=== PATIENT | male | born 1945 | race Caucasian/White ===

== ENCOUNTER → 2018-09-20 | Outpatient (CLI) | payer MEDICARE ==
[~2018-09-20] MED LIST: ADULT LOW DOSE81 MG PO; COUMADIN 2.5MG2.5 M1 PO; COUMADIN 3 MG TA3 MG PO; FISH OIL 1,0001 EAC5 PO; LORTAB 7.5/5001 TA1 PO; PERCOCET 5-3251 EACH; PERCOCET 5-3251 EACH PO; PHISOHEX148 ML; SERTRALINE HCL100 MG PO; ZOCOR 20 MG TAB20 M1 PO
--- NOTE | 2018-09-20 14:56 | 2DMMODE ---
[facility] [email or web address] [place] [address] 2 D/M-MODE ECHOCARDIOGRAM Name: MOSES MAIER Room #: REG CL [facility]#: [id number] ������������� Admission: 09/20/18 ������������� Attend Phys: Gautam Burns MD Discharge: ��� ������������� ��� Date of : 47 Date of Service: 09/20/18 1456 �� Report #: [id number] �������� ��������������������������������������������[id number] THIS REPORT FOR: //name// APPROVED REPORT Study performed: 09/20/2018 14:13:54 EXAM: Comprehensive 2D, Doppler, and color-flow Echocardiogram Patient Location: Out-Patient Status: routine BSA: 2.30 HR: 51 bpm BP: 138/76 mmHg Rhythm: NSR Other Information Study Quality: Adequate Indications Cardiomyopathy. AVR. 2D Dimensions RVDd: 40.77 mm IVSd: 10.33 (7-11mm) LVDd: 55.84 mm PWd: 9.30 (7-11mm) Ascending Ao: 38.91 (22-36mm) LVDs: 33.78 (25-40mm) Aortic Root: 37.25 mm Volumes Left Atrial Volume (Systole) Single Plane 4CH: 60.70 mL Single Plane 2CH: 54.26 mL LA ESV Index: 26.00 mL/m2 Aortic Valve AoV Peak Xavier.: 2.70 m/s AO Peak Gr.: 29.27 mmHg LVOT Max P.54 mmHg AO Mean Gr.: 15.19 mmHg AO V2 Mean: 1.84 m/s LVOT Max V: 1.07 m/s AO V2 VTI: 62.04 cm Mitral Valve E/A Ratio: 0.9 MV Decel. Time: 259.82 ms [facility] [address] [place] [address] 2 D/M-MODE ECHOCARDIOGRAM Name: MOSES MAIER Room #: REG CL [facility]#: [id number] ������������� Admission: 09/20/18 ������������� Attend Phys: Gautam Burns MD Discharge: ��� ������������� ��� Date of : 47 Date of Service: 09/20/18 1456 �� Report #: [id number] �������� ��������������������������������������������[id number] MV E Max Xavier.: 0.66 m/s MV A Xavier.: 0.74 m/s MV PHT: 75.35 ms IVRT: 92.27 ms Pulmonary Valve PV Peak Xavier.: 1.28 m/s PV Peak Gr.: 6.59 mmHg Pulmonary Vein P Vein S: 0.43 m/s P Vein A: 0.27 m/s P Vein D: 0.49 m/s P Vein A Dur.: 152.2 msec P Vein S/D Ratio: 0.88 Tricuspid Valve TR Peak Xavier.: 1.79 m/s RAP Estimate: 5.00 mmHg TR Peak Gr.: 12.77 mmHg PA Pressure: 18.00 mmHg Left Ventricle The left ventricle is normal size. There is normal LV segmental wall motion. There is normal left ventricular wall thickness. Left ventricular systolic function is normal. LVEF is 55%. Mild diastolic dysfunction is present (impaired relaxation pattern). Right Ventricle The right ventricle is normal size. The right ventricular systolic function is normal. Atria The left atrium size is normal. Right atrium is at the upper limits of normal. Aortic Valve There is a 25mm Bovine bioprosthetic valve. Peak gradient of 29mmHg. Mean gradient of 15mmHg. Trace aortic regurgitation. Mitral Valve The mitral valve is normal in structure. Mild mitral regurgitation. Tricuspid Valve The tricuspid valve is normal in structure. Trace tricuspid regurgitation. Estimated PAP is 18mmHg. Pulmonic Valve The pulmonary valve is normal in structure. Mild pulmonic [address] [address] 2 D/M-MODE ECHOCARDIOGRAM Name: MOSES MAIER Room #: REG CL [facility].#: [id number] ������������� Admission: 09/20/18 ������������� Attend Phys: Gautam Burns MD Discharge: ��� ������������� ��� Date of : 47 Date of Service: 09/20/18 1456 �� Report #: [id number] �������� ��������������������������������������������[id number] regurgitation. Great Vessels The aortic root is normal in size. The ascending aorta is mildly dilated at 4.0cm. IVC is normal in size and collapses >50% with inspiration. Pericardium There is no pericardial effusion. <Conclusion> The left ventricle is normal size. There is normal left ventricular wall thickness. Left ventricular systolic function is normal. Mild diastolic dysfunction is present (impaired relaxation pattern). The right ventricle is normal size. The left atrium size is normal. There is a 25mm Bovine bioprosthetic valve. Peak gradient of 29mmHg. Mean gradient of 15mmHg. Trace aortic regurgitation. Mild mitral regurgitation. Trace tricuspid regurgitation. Estimated PAP is 18mmHg. ��������������������������������������������� <ELECTRONICALLY SIGNED> ���������������������������������������� By: Gautam Burns MD ��������������������������������������������� 09/20/18 1456 1456 1456 Gautam Burns MD /INF
== END ==
LOC: CV 12:48
DX: I08.8 Other rheumatic multiple valve diseases (principal); I25.10 Atherosclerotic heart disease of native coronary artery without angina pectoris

== ENCOUNTER → 2019-09-20 | Outpatient (CLI) | payer MEDICARE | LOC: SJCVC 13:27 | PROVIDERS: ATTEND Internal Medicine Cardiovascular Disease | DX: R00.1 Bradycardia, unspecified (principal); I25.10 Atherosclerotic heart disease of native coronary artery without angina pectoris; E78.00 Pure hypercholesterolemia, unspecified; I10 Essential (primary) hypertension; Z95.2 Presence of prosthetic heart valve; Z79.82 Long term (current) use of aspirin; Z79.899 Other long term (current) drug therapy; Z87.891 Personal history of nicotine dependence ==

== ENCOUNTER → 2020-03-23 | Outpatient (CLI) | payer MEDICARE | LOC: SJCVCIMAG 10:54 | PROVIDERS: ATTEND Internal Medicine Cardiovascular Disease | DX: I25.10 Atherosclerotic heart disease of native coronary artery without angina pectoris (principal); R94.31 Abnormal electrocardiogram [ECG] [EKG]; R00.1 Bradycardia, unspecified; I10 Essential (primary) hypertension; E78.00 Pure hypercholesterolemia, unspecified; Z95.2 Presence of prosthetic heart valve; Z79.82 Long term (current) use of aspirin; Z79.899 Other long term (current) drug therapy; Z87.891 Personal history of nicotine dependence; Z82.49 Family history of ischemic heart disease and other diseases of the circulatory system ==

== ENCOUNTER → 2020-09-21 | Outpatient (CLI) | payer MEDICARE | LOC: SJCVC 11:10 | PROVIDERS: ATTEND Internal Medicine Cardiovascular Disease | DX: R00.1 Bradycardia, unspecified (principal); I25.10 Atherosclerotic heart disease of native coronary artery without angina pectoris; E78.00 Pure hypercholesterolemia, unspecified; F32.9 Major depressive disorder, single episode, unspecified; Z87.891 Personal history of nicotine dependence; Z72.89 Other problems related to lifestyle; Z79.82 Long term (current) use of aspirin; Z79.899 Other long term (current) drug therapy; Z95.2 Presence of prosthetic heart valve ==

== ENCOUNTER → 2021-03-25 | Outpatient (CLI) | payer MEDICARE | LOC: SJCVCIMAG 09:22 | PROVIDERS: ATTEND Internal Medicine Cardiovascular Disease | DX: R00.1 Bradycardia, unspecified (principal); I25.10 Atherosclerotic heart disease of native coronary artery without angina pectoris; E78.00 Pure hypercholesterolemia, unspecified; I10 Essential (primary) hypertension; Z95.2 Presence of prosthetic heart valve; Z79.82 Long term (current) use of aspirin; Z79.899 Other long term (current) drug therapy; Z72.89 Other problems related to lifestyle; Z87.891 Personal history of nicotine dependence ==